=== PATIENT | female | born 1965 | race Caucasian/White ===

== ENCOUNTER 2016-07-04 20:44 | Emergency (ER) | payer OTHER | END 2016-07-04 22:28 | disposition home or self-care (01) | LOC: ER 20:44 | DX: S00.03XA Contusion of scalp, initial encounter (principal); W01.0XXA Fall on same level from slipping, tripping and stumbling without subsequent striking against object, initial encounter; Y92.009 Unspecified place in unspecified non-institutional (private) residence as the place of occurrence of the external cause; G31.9 Degenerative disease of nervous system, unspecified; M79.641 Pain in right hand; Z79.82 Long term (current) use of aspirin | CPT/HCPCS: 70450; 73130; 99283-25 ==